=== PATIENT | male | born 1935 | race Caucasian/White ===

== ENCOUNTER 2021-10-05 12:53 | Outpatient (NON) | payer MEDICARE, SELFPAY ==
[2021-10-05 13:14] LABS: Add Urine Microscopic? YES; Appearance Urine Clear (Clear); Bilirubin Urine 3+ (Negative); Blood Urine Negative (Negative); Color Urine Brown (Yellow); Glucose Urine UA Negative (Negative); Ketones Urine Trace mg/dL (Negative); Leukocyte Esterase Ur Negative LEU/UL (Negative); Nitrate Urine Negative (Negative); Protein Urine Trace mg/dL (Negative); Urobilinogen Urine 0.2 mg/dL (<2.0); pH Urine 5.5 (5.0-9.0)
[2021-10-05 13:17] LABS: Bacteria Urine Trace /hpf; Mucus Urine Rare /lpf; Squamous Epithelial Cell Urine Occasional /hpf (Few)
== END 2021-10-05 12:54 | disposition home or self-care (01) ==
LOC: ANHLAB 12:54
PROVIDERS: PCP Internal Medicine; Visit Provider Internal Medicine
DX: R19.7 Diarrhea, unspecified (principal); R30.0 Dysuria
CPT/HCPCS: 81001; 87045; 87086; 87088; 87324; 87427

== ENCOUNTER 2021-10-07 08:02 | Emergency (ER) | payer MEDICARE, OTHER, SELFPAY ==
--- NOTE | ~2021-10-07 | CT_ITS ---
EXAMINATION: CTA chest PE abdomen pel DATE: 10/07/2021 09:46 INDICATION: Shortness of breath. Jaundice. TECHNIQUE: Computed tomography angiography (CTA) of the chest was performed with 100 mL Omnipaque-350 intravenous contrast timed to evaluate the pulmonary arteries. Coronal maximum intensity projection 3D-reconstructions were created by the technologist. Computed tomography (CT) of the abdomen and pelv is was performed with intravenous contrast. Automated exposure control and iterative reconstruction t echnique were employed. The dose-length product was 520.39 mGy-cm. COMPARISON: CT abdomen and pelvis 04/24/2014 FINDINGS: CTA chest: There are greater than 50 scattered nodules in the lungs measuring up to 1.9 cm. There is a small right pleural effusion. The heart size is normal. No pericardial effusion. There are coronary artery calcifications. Calcified hilar and mediastinal lymph nodes are consistent with old granuloma tous disease. There is no pulmonary embolus. There is a right chest port with tip at superior cavoatr ial junction. There is mild thoracic spondylosis. CT abdomen and pelvis: There are multiple masses in the liver measuring up to 10.2 cm. High attenuati on in some of the masses may be calcifications or changes of chemoembolization. The gallbladder wall is involved by the liver masses. Calcifications in the spleen are consistent with old granulomatous d isease. The pancreas and right adrenal gland are normal. There is a chronic 12 mm mass in left adrena l gland, likely an adenoma. The kidneys are normal. There is a Marisel pouch. There is an end ostomy in right abdomen. There is a parastomal hernia containing a small volume of ascites. There is a smal l sliding hiatal hernia. There is a small volume of perihepatic and pelvic ascites. There are no path ologically enlarged lymph nodes. There is severe lumbar spondylosis. IMPRESSION: 1. No pulmonary embolus. 2. Lung nodules and liver masses with involvement of the gallbladder, consistent with metastatic dise ase. 3. Small right pleural effusion. 4. Small volume of ascites. Reviewed, dictated and finalized at location A. IMPRESSION: 1. No pulmonary embolus. 2. Lung nodules and liver masses with involvement of the gallbladder, consisten t with metastatic disease. 3. Small right pleural effusion. 4. Small volume of ascites.
--- NOTE | ~2021-10-07 | XR_ITS ---
XR chest 1V portable 10/07/2021 08:54 Indication: Cough with shortness of breath. Procedure: AP portable chest Comparison: No prior studies for comparison. Findings: Portacatheter tip in the SVC. There are bilateral pulmonary nodules, suspicious for metasta tic disease. Correlate for history of malignancy. Heart size normal. No pleural effusion or pneumotho rax. Impression: 1: Bilateral pulmonary nodules, suspicious for metastatic disease. Correlate for history of malignanc y. Reviewed, dictated and finalized at location A. Impression: 1: Bilateral pulmonary nodules, suspicious for metastatic disease. Correlate fo r history of malignancy.
[2021-10-07 08:06] VITALS: BP 113/73; PULSE 110; RESP 20; TEMP 36.5; O2SAT 95
[2021-10-07 08:13] VITALS: O2SAT 99
--- NOTE | 2021-10-07 08:17 | ECG_ITS ---
Measurements Intervals [place] Rate: 103 P: 27 WA: 170 QRS: -2 QRSD: 84 T: 52 QT: 320 QTc: 421 Interpretive Statements SINUS TACHYCARDIA LOW QRS VOLTAGE [QRS DEFLECTION < 0.5/1.0 mV IN LIMB/CHEST LEADS] ABNORMAL ECG NO PREVIOUS ECG AVAILABLE FOR COMPARISON Electronically Signed On 10-07-2021 14:28:24 CDT by Danny Peterson M.D.
[2021-10-07 08:28] LABS: Basophils Absolute Auto 0.1 K/mm3 (0.0-0.1); Basophils Percent Auto 0.4 % (0.2-1.2); Eosinophils Absolute Auto 0.2 K/mm3 (0-0.3); Eosinophils Percent Auto 1.1 % (0-4.4); Hematocrit 35.7 % (42.0-52.0); Hemoglobin 11.6 g/dL (14.0-18.0); Immature Granulocyte Absolute 0.19 K/mm3 (0.00-0.031); Immature Granulocyte Percent A 0.9 % (0-0.5); Lymphocytes Absolute Auto 1.01 K/mm3 (0.9-3.2); Lymphocytes Percent Auto 4.7 % (18.3-44.2); Mean Corpuscular HGB Conc 32.5 g/dl (32-36); Mean Corpuscular Hemoglobin 28.6 pg (26-34); Mean Corpuscular Volume 88.1 fl (80-100); Mean Platelet Volume 9.5 fl (7.4-10.4); Monocytes Absolute Auto 1.7 K/mm3 (0.1-0.6); Monocytes Percent Auto 8.1 % (2.6-8.5); Neutrophils Absolute Auto 18.2 K/mm3 (1.3-6.7); Neutrophils Percent Auto 84.8 % (45.5-73.1); Platelet Count Result 433 k/mm3 (150-375); Red Blood Count 4.05 M/mm3 (4.6-6.20); Red Cell Distribution Width 20.2 % (11.5-14.5); White Blood Count 21.5 K/mm3 (4.5-10.0)
[2021-10-07 08:35] VITALS: PULSE 99; RESP 16
[2021-10-07] MEDS: ALBUTEROL SULFATE NEB 2.5 MG/3 ML INH 5 MG INHALATION (08:38)
[2021-10-07] MEDS: IPRATROPIUM BR 0.02% INH SOLN 0.5 MG/2.5 ML VIAL INHALATION (08:38)
[2021-10-07 08:40] VITALS: PULSE 98; RESP 14
[2021-10-07 08:48] LABS: Alanine Aminotransferase 97 U/L (6-50); Albumin Level 2.8 g/dL (3.5-5.1); Alkaline Phosphatase 900 U/L (38-126); Anion Gap 10 mmol/L (8-16); Aspartate Amino Transferase 310 U/L (17-59); Bilirubin,Total 12.7 mg/dL (0.2-1.3); Blood Urea Nitrogen 20 mg/dL (9-20); Calcium 8.6 mg/dL (8.4-10.2); Carbon Dioxide 26 mmol/L (22-30); Chloride 94 mmol/L (98-107); Estimated Glomerular Filt Rate > 60; Glucose 114 mg/dL (65-110); Potassium 4.4 mmol/L (3.4-5.0); Sodium 130 mmol/L (137-145)
[2021-10-07 09:01] LABS: Lactic Acid Reflex 3.4 mmol/L (0.7-2.0)
[2021-10-07 09:08] LABS: Magnesium 2.4 mg/dL (1.6-2.3)
[2021-10-07 09:10] LABS: INR 1.4; Prothrombin Time 16.2 Seconds (11.1-14.7)
[2021-10-07 09:21] LABS: NT Pro B Type Natriuretic Pept 869 pg/mL (5-100); Troponin I < 0.012 ng/mL (0.000-0.034)
--- NOTE | 2021-10-07 09:28 | PC.NURSE ---
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
[2021-10-07] MEDS: SODIUM CHLORIDE 0.9% IV 1,000 ML 999 ML IV CONT (09:29)
--- NOTE | 2021-10-07 09:35 | ED.GENADULT ---
HPI - General Adult General Chief complaint: Shortness of Breath/Dyspnea Stated complaint: SOB Time Seen by Provider: 10/07/21 08:08 History of Present Illness HPI narrative: Patient 85-year-old gentleman who presents the emergency department with chief complaint of shortness of breath patient reports he has history of metastatic cancer has been undergoing chemotherapy and today noticed that he felt short of breath. Patient states that his symptoms are worsened whenever he attempted to eat this morning and states that he felt extremely short of breath. The patient states is a little better now that he is arrived to the emergency department. The patient denies fever denies chills. The patient reports that he was told by his oncologist that there was nothing more that they could do and has been referred to another group. Related Data Home Medications Medication Instructions Recorded Confirmed acetaminophen 300 mg-codeine 30 mg 1 tablet PO Q4-6H PRN 08/06/21 08/06/21 tablet aspirin 81 mg tablet,delayed 81 mg PO 3XW 08/06/21 08/06/21 release (Adult Low Dose Aspirin) atorvastatin 10 mg tablet 10 mg PO DAILY 08/06/21 08/06/21 blood-glucose meter 08/06/21 08/06/21 calcium carbonate 600 mg calcium 600 mg PO DAILY 08/06/21 08/06/21 (1,500 mg) tablet (Calcium) cetirizine 10 mg tablet 10 mg PO DAILY PRN 08/06/21 08/06/21 lorazepam 1 mg tablet 1 mg PO DAILY PRN 08/06/21 08/06/21 montelukast 10 mg tablet 10 mg PO DAILY 08/06/21 08/06/21 tamsulosin 0.4 mg capsule 0.4 mg PO DAILY 08/06/21 08/06/21 tiotropium bromide 2.5 2 puff inhalation DAILY 08/06/21 08/06/21 mcg/actuation mist for inhalation (Spiriva Respimat) tramadol 50 mg tablet 50 mg PO Q6H PRN 08/06/21 08/06/21 Allergies Allergy/AdvReac Type Severity Reaction Status Date / Time No Known Allergies Allergy Verified 10/07/21 10:27 Review of Systems Review of Systems: A 10 system review of systems was completed on the patient and is negative except for what is stated in the HPI. Nursing and ancillary documentation was reviewed. [facility] Past Medical History Medical History Colon cancer Colostomy in place History of chemotherapy Last dose was ~1month ago Liver cancer Lung cancer Skin cancer Surgical History Surgical History History of colon surgery History of hernia repair Family History Family History Mother Cerebrovascular accident Father Parkinson's disease Social History Social History Smoking status: Former smoker Second hand tobacco smoke exposure: Yes Alcohol intake: former Substance use: never Substance use type: does not use Gender identity (if verbalized by the patient): Male Exam Narrative: GENERAL: Well-appearing, well-nourished, and in no acute distress. HEAD: Normocephalic, atraumatic. EYES: PERRLA and EOMI. ENT: Nares clear, no rhinorrhea or epistaxis. Mucous membranes moist. NECK: Supple. CHEST: Clear to auscultation. No respiratory distress. HEART: Regular rate and rhythm. No murmur heard. Normal peripheral pulses. ABDOMEN: Soft, nontender, nondistended, normal active bowel sounds. EXTREMITIES: Normal range of motion. No edema. SKIN: Warm, dry, no rash. NEURO: No focal deficits. Alert and oriented x3. PSYCH: Normal mood and affect. Course Course Emergency Course: Patient's laboratory studies show an elevated bilirubin. Patient is significantly icteric. CT scan showed evidence of progression of the patient's metastatic disease the case was discussed with the oncologist at [facility] who recommended palliative/hospice care If there are any questions you may contact [phone] Monserrat Miranda Care coordination was consulted for possible hospi
[2021-10-07 09:40] LABS: SARS-CoV-2 RNA PCR Negative
[2021-10-07 10:53] VITALS: O2SAT 99
[2021-10-07 10:54] VITALS: BP 113/67; PULSE 99; RESP 18; O2SAT 100
[2021-10-07 11:45] LABS: Reflex Lactic Acid Yes or No Add Lactic
--- NOTE | 2021-10-07 12:35 | PCCCNOTE ---
Meet with pt and for to provide information on hospice. Pt is terminal and withine 6 months of end of life. After giving information initially would like to speak with FAL[facility] at there home. FLASH called and information given to set up an appointment. is aware that the other hospice services could still be considered.
== END 2021-10-07 14:08 | disposition home or self-care (01) ==
PROVIDERS: Emergency Provider Emergency Medicine; PCP Internal Medicine
DX: C18.9 Malignant neoplasm of colon, unspecified (principal); C78.7 Secondary malignant neoplasm of liver and intrahepatic bile duct; R17 Unspecified jaundice; R06.00 Dyspnea, unspecified; C78.02 Secondary malignant neoplasm of left lung; C78.01 Secondary malignant neoplasm of right lung; Z93.3 Colostomy status; Z85.828 Personal history of other malignant neoplasm of skin; Z87.891 Personal history of nicotine dependence; Z79.82 Long term (current) use of aspirin; Z79.899 Other long term (current) drug therapy
CPT/HCPCS: 36415; 71045; 71275; 74177; 80053; 83605; 83735; 83880; 84145; 84484; 85025; 85610; 85730; 87040; 87147; 87186; 93005; 94640; 96360; 96361; 99284; C9803; J7030; Q9967; U0003; U0005